=== PATIENT | female | born 1995 | race American Indian/Alaskan Native ===

== ENCOUNTER 2018-01-03 17:19 | Emergency (ER) | payer OTHER ==
[~2018-01-03] VITALS: Ht 162.6 cm; Wt 59.0 kg
[~2018-01-03 17:19] MED LIST: ALBU90OI61 INH; AMOX50SU PO; Amoxicillin500 MG PO; Ativan0.5 MG PO; BUSP5 PO; CARV6.25 PO; CEPH500 PO; CLIN300 PO; GABA300 PO; HYDACE5 PO; HYDACE5325 PO; HYDGUAL120 PO; IBUP800 PO; LORA1 PO; MEDR150I IM; OMEP10ER PO; OXYACE5T PO; PENVK500 PO; PROM25 PO; RXAMOX250S PO; RXHYDMOR2 PO; SUBOXONE 8 MG-1 EACH SL; SULTRIDS PO; TRAZ150T57 PO; TYLENOL AND MOTRIN; Ultram50 MG PO; Verotin-Gr Cap1 EACH PO
[2018-01-03] MEDS ORDERED: Prinivil5 MG PO (18:05)
[2018-01-03] MEDS ORDERED: Coreg12.5 MG PO (18:05)
== END 2018-01-03 18:15 | disposition home or self-care (01) ==
LOC: ER 17:19
DX: S20.219A Contusion of unspecified front wall of thorax, initial encounter (principal); Z76.0 Encounter for issue of repeat prescription; F17.210 Nicotine dependence, cigarettes, uncomplicated; Z88.5 Allergy status to narcotic agent; Z79.899 Other long term (current) drug therapy; V43.52XA Car driver injured in collision with other type car in traffic accident, initial encounter
CPT/HCPCS: 71046; 73030; 99284-25